=== PATIENT | male | born 1960 | race Caucasian/White ===

== ENCOUNTER 2024-03-08 08:34 | Outpatient (REF) | payer MEDICARE, MEDICAID, SELFPAY ==
--- NOTE | ~2024-03-08 | XR_ITS ---
EXAMINATION: XR HIP, LEFT Pelvis CLINICAL INFORMATION: Pain in the left hip COMPARISON: None available. TECHNIQUE: Two views of the left hip. Single AP view of the pelvis FINDINGS: The bones joints and soft tissues of the pelvis and left hip are normal. Incidental note made of spondylosis of the partially visualized lumbar sacral spine with degenerative disc changes present at least at the L3-L4 and L4-L5 level with disc space narrowing and endplate osteophytes. XR/XR hip LT min 2V IMPRESSION: 1. Normal pelvis and left hip. 2. 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 Electronically signed by: Tino Saucedo MD 03/14/2024 11:53 AM EDT
== END 2024-03-08 08:35 | disposition home or self-care (01) ==
LOC: HO.HOSX 08:34
PROVIDERS: Visit Provider Physician Assistant
DX: M25.552 Pain in left hip (principal); M16.12 Unilateral primary osteoarthritis, left hip
CPT/HCPCS: 73502; 99202

== ENCOUNTER 2024-03-08 10:36 | Outpatient (AMB) | payer MEDICARE, SELFPAY ==
--- NOTE | 2024-03-08 11:04 | MHC.OFFVIS ---
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 Patient reports his pain has been present for a while and is located in his groin area that travels towards the lateral aspect and at times to his lower back. He feels that his balance is off. He has had a previous MRI done in [place] on Jania Singh. Finds little to no relief with 650mg Arthritis Tylenol. He also takes gabapentin for his back however this does not provide him with any relief. 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 He states he has pain in his groin area that radiates up the back. His pain is aggravated with getting up from a seated position and walking. He finds minimal relief with Tylenol 650 and takes gabapentin for his back with no benefits. He ambulates with a limp. He has a history of back injections for his back pain. [facility] Surgical History (Updated 03/08/24 @ 11:10 by MERRITT Johnson) History of back surgery Social History (Updated 03/08/24 @ 11:11 by MERRITT Johnson) Patient Tobacco Use Status: Former Tobacco user Current occupational status: unemployed Review of Systems Const All systems reviewed & are unremarkable except as noted in HPI and below Physical Exam Const General: cooperative, healthy appearing, comfortable, no acute distress, well developed and alert Orientation/consciousness: patient oriented x3 HEENT Head: Yes normal to inspection, Yes normocephalic and Yes atraumatic Eyes General: appearance normal, both eyes and all related structures Resp Effort & Inspection: normal respiratory effort and able to speak in complete sentences Cardio Rate: regular rate Peripheral pulses: Peripheral pulses 2+ throughout GI Palpation (GI): Soft to palpation Skin Lesions: no lesions Rashes: no rashes Neuro General: patient oriented x3 Extrem Other: Left hip: Normal to inspection, ambulates with a slight limp. Has mild discomfort with internal and extension rotation of hip. No significant stiffness. Mild discomfort with hip flexion against resistance. NVI. Results Reviewed Results Reviewed: Xrays were obtained in the office today and personally reviewed by me of the left hip show mild oa Assessment & Plan Assessment & Plan (1) Osteoarthritis of left hip: Code(s): M16.12 - Unilateral primary osteoarthritis, left hip Category: Medical Plan We discussed options which include PT, NSAIDs and injections. The patient will defer on the injection today and proceed with PT and NSAIDs. If symptoms persist, she will contact me for an injection, otherwise, PRN. Orders: Orders PT Evaluation and Treatment Today M16.12 - Unilateral primary osteoarthritis, left hip XR hip LT min 2V Today M25.552 - Pain in left hip Patient Instructions: Scribed for Milton Juarez PA-C, by Christian Echavarria faculty i on call medical assistant, on 03/08/2024 at 11:00 AM EST.? I, Milton Juarez PA-C, have personally reviewed and agree with the information entered by the scribe. Coding Level of Care Code New Pt Level 3 (99814) Complex EM visit Add On G2211 Diagnoses Osteoarthritis of left hip M16.12
== END 2024-03-08 11:35 | disposition home or self-care (01) ==
PROVIDERS: PCP Family Medicine; Visit Provider Physician Assistant
DX: M16.12 Unilateral primary osteoarthritis, left hip (principal)
CPT/HCPCS: 99203; G2211

== ENCOUNTER 2024-05-09 08:00 | Outpatient (RCR) | payer MEDICARE, OTHER, SELFPAY ==
--- NOTE | 2024-03-23 12:47 | MHC.PT.EP ---
[facility] [place] [facility] [place] [facility] [place] Office [address] Parth Singh [address] [phone] F: [phone] F: [phone] F: [phone] F: [phone] Physical Therapy Plan of Care Date of Evaluation: 03/23/24 Date of Surgery: Diagnosis: OA of L hip. Assessment: Patient is a 64 year old R handed male who presents with s/s consistent with L hip OA, L hip pain. He does not work but likes to stay active at [facility] [employer] and in the community but has been less able to do so. Patient past medical history includes back surgery. Current impairments include pain, balance, ROM, flexibility, strength, activity tolerance and functional mobility. Functional limitations include decreased ability to walk, squat, transfer, negotiate stairs, and get out in the community. He does have a history of a fall. Patient is motivated with good rehab potential. Skilled PT will address impairments and functional limitations in order to achieve goals. Frequency and Duration: The patient will be seen 2x/week for 5 weeeks Short Term Goals: I with HEP -2 weeks L hip ER 35 - 3 weeks L hip flexion 110 - 3 weeks Mcfp Goals: Able to walk 20 minutes without increased pain - 5 weeks SLB > 5 seconds - 5 weeks LEFS 40/80 - 5 weeks Strength 4/5 grossly - 5 weeks Treatment Plan: Modalities to reduce pain, spasms and effusion. Manual therapy to restore motion and function. Therapeutic exercise to improve strength and flexibility. Neuromuscular re-education for posture and balance. Therapeutic activities to return to functional activities of daily living. Electronically signed by: Pedro Luis Templeton, PT Please sign and return to therapist. Thank you for your referral.
--- NOTE | 2024-07-11 13:51 | MHC.PT.DC ---
[facility] [place] [facility] [place] [facility] [place] [facility] [address] Parth Singh [address] [phone] F: [phone] F: [phone] F: [phone] F: [phone] Physical Therapy Discharge Report Diagnosis: OA of L hip. Date of Surgery: Date of Evaluation: 03/23/24 Date of Discharge: 05/13/24 Treatments to Date: 12 Cancellations to Date: No Shows to Date: Discharge Status: Improved Function Independent with HEP Discharge Summary: 05/09/24: pt is I with HEP. Hip ER is 38 on L, flexion to 112. He is able to walk 20 minutes without increased pain. His LEFS is 52/80 and his strength is 4/5 grossly. His SLB is 6 seconds b/l. He has met or exceeded all goals and is appropriate to d/c to HEP at this time. 05/01/24: pt progressing nicely. reviewed HEP as we plan to d/c to HEP NV. 04/25/24: pt with no new s/s. progressing ROM/flex/strength. we are tapering to d/c to HEP. 04/19/24: pt on good program and responding well. continue to progress as tolerated with current program. we will tape to 1x/week moving forward. 04/17/24: pt respondign well and we are considering tapering down as s/s have improved and he has become more I with program. we will discuss NV. 04/12/24: pt has been experiencing some soreness and stiffness around hip which has limited our ability to progress. we will attempt NV. 04/10/24: pt continues to respond well. no adverse reactions from above program. pt I with HEP. 04/05/24: added piriformis stretching with good response. continue to progerss as tolerated. update HEP NV. 04/02/24: pt progressing well still. on good program. no s/s to start or finish today. continue to progress strength. 03/28/24: pt progressing well. good gait mechanics. symmetrical. no adverse reactions from todays' progression. 03/26/24: pt progressing well with skilled PT. no adverse reactions continue to progress as tolerated..compliant with HEP. Patient is a 64 year old R handed male who presents with s/s consistent with L hip OA, L hip pain. He does not work but likes to stay active at home and in the community but has been less able to do so. Patient past medical history includes back surgery. Current impairments include pain, balance, ROM, flexibility, strength, activity tolerance and functional mobility. Functional limitations include decreased ability to walk, squat, transfer, negotiate stairs, and get out in the community. He does have a history of a fall. Patient is motivated with good rehab potential. Skilled PT will address impairments and functional limitations in order to achieve goals. Electronically signed by: Pedro Luis Templeton, PT Please sign and return to therapist. Thank you for your referral.
== END 2024-07-11 13:52 | disposition home or self-care (01) ==
LOC: HO.PTCHIC 08:00
PROVIDERS: PCP Family Medicine; Visit Provider Physician Assistant
DX: M16.12 Unilateral primary osteoarthritis, left hip (principal)
CPT/HCPCS: 97110; 97112; 97162

== ENCOUNTER 2025-02-08 08:20 | Outpatient (AMB) | payer MEDICARE, SELFPAY ==
--- NOTE | 2025-02-08 08:26 | MHC.OFFVIS ---
Vital Signs 02/08/25 08:33 Height 5 ft 6 in Weight 182 lb BMI 29.4 Intake Visit Reasons: OV - LT hip pain worsening Intake Note: Hong is a 65 year old man who presents today for a follow up visit for his osteoarthritis of the left hip. At his last visit on 03/08/24 patient did not want an injection however did agree to physical therapy. Today patient reports his pain has gotten worse. He reports frequent falls and stating his hip is not as strong. He would like to discuss if he is a surgical candidate for a hip replacement. Allergies aprindine Allergy (Verified 02/08/25 08:44) Swelling Penicillins Allergy (Verified 02/08/25 08:44) Unknown mycin Allergy (Uncoded 02/08/25 08:44) Unknown Medication List - Last Reconciled 02/08/25 by Milton Juarez PA-C atorvastatin 40 mg PO DAILY carbamazepine mg PO lisinopril 10 mg PO DAILY HPI HPI OV - LT hip pain worsening: Details: 65-year-old gentleman returns to the office today for a follow-up left hip pain. He states the pain is laterally and also into the groin region. He has difficulty with sleeping at night. He states he has tried physical therapy but he was only given 6 visits per his insurance and did not have any success with their treatment plan. [facility] Surgical History History of back surgery Social History Patient Tobacco Use Status: Former Tobacco user Current occupational status: unemployed Review of Systems Const All systems reviewed & are unremarkable except as noted in HPI and below Physical Exam Vital Signs: BMI result Body Mass Index 29.4 Const General: cooperative, healthy appearing, comfortable, no acute distress, well developed and alert Orientation/consciousness: patient oriented x3 HEENT Head: Yes normal to inspection, Yes normocephalic and Yes atraumatic Eyes General: appearance normal, both eyes and all related structures Resp Effort & Inspection: normal respiratory effort and able to speak in complete sentences Cardio Rate: regular rate Peripheral pulses: Peripheral pulses 2+ throughout GI Palpation (GI): Soft to palpation Skin Lesions: no lesions Rashes: no rashes Neuro General: patient oriented x3 Extrem Other: Left hip: Normal to inspection, ambulates with a slight limp. Has mild discomfort with internal and extension rotation of hip. No significant stiffness. Mild discomfort with hip flexion against resistance. Pain over the greater trochanter. NVI. Office Procedures AMB Joint Injection/Aspiration Joint Injection/Aspiration Details: left trochanteric bursa Prep: site was prepped using aseptic technique, ethochloride spray was applied and injection warnings given Injected: 40 mg of, with 3 mL of, 1% plain lidocaine, 0.25% bupivacaine and decadron Procedure: The patient tolerated the procedure well and there was some relief with the local anesthesia Coding 31345 - Glenohumeral/Tronchanteric Bursa/Intraarticular Procedure code (CPT) selection complete Assessment & Plan Assessment & Plan (1) Osteoarthritis of left hip: Code(s): M16.12 - Unilateral primary osteoarthritis, left hip Category: Medical (2) Trochanteric bursitis, left hip: Code(s): M70.62 - Trochanteric bursitis, left hip Category: Medical Plan We discussed options which includes a steroid injection over the bursa of his left hip. Patient tolerated the procedure well. He will work on home exercises for strengthening of the glute muscles. We will also order an MRI of the left hip to further evaluate the hip joint and soft tissues. Once the scan is complete I will contact the patient to discuss the next step in his treatment. I also had him make an appointment with Dr. He to evaluate his sciatica. Coding Level of Care Code Est Pt Level 3 (82767) Complex EM visit Add On G2211 Diagnoses Osteoarthritis of left hip M16.12 Trochanteric bursitis, left hip M70.62 CPT Codes Coding - Joint 7: 04211 - Glenohumeral/Tronchanteric Bursa/Intraarticular ([id number])
[2025-02-08 08:33] VITALS: BMI 29.4
--- OUTSIDE RECORDS SUMMARY | 2025-02-08 08:42 | XMS_ITS | Clinical Summary ---
Author Organization [facility] Address [address] [place] [address] Care Team Providers Care Oil Operator Name Role Phone Matias Pires MD Primary Care Provider [phone] Allergies Active Allergy Reactions Criticality Noted Date Comments Epinephrine Neutralizing Factor 10/28 Erythromycin 11/13/2020 Penicillins 11/13/2020 Lidocaine 11/13/2020 Medications Medication Sig Dispensed Refills Start Date End Date Status carBAMazepine (TEGretol) 200 MG tablet Take 200 mg by mouth 3 (three) times a day. 0 Active lisinopril (PRINIVIL,ZESTRIL) tablet 10 mg Take 10 mg by mouth daily. 0 Active atorvastatin (LIPITOR) tablet 10 mg Take 10 mg by mouth every evening. 0 Active oxyCODONE-acetaminophe n (PERCOCET) 5-325 MG per tablet TAKE 1 TO 2 TABLETS BY MOUTH EVERY 4 HOURS NEEDED FOR PAIN 0 01/02/2021 Active ibuprofen 600 MG tablet TAKE ONE TABLET THREE TIMES DAILY WITH FOOD NEEDED 0 05/11/2021 Active Active Problems Problem Noted Date Diagnosed Date Postop check 01/13/2021 Right shoulder injury, initial encounter 021 Impingement syndrome of right shoulder Family History Medical History Relation Name Comments Diabetes Mother Relation Name Status Comments Mother Social History Tobacco Use Types Packs/Day Years Used Date Smoking Tobacco: Never Assessed Sex and Gender Information Value Date Recorded Sex Assigned at Not on file Gender Identity Not on file Sexual Orientation Not on file Job Start Date Occupation Industry Not on file Not on file Not on file Last Filed Vital Signs Vital Sign Reading Time Taken Comments Blood Pressure - - Pulse - - Temperature - - Respiratory Rate - - Oxygen Saturation - - Inhaled Oxygen Concentration - - Weight 85.3 kg (188 lb) 11/25/2020 10:16 AM EDT Height 167.6 cm (5' 6 ) 11/25/2020 10:16 AM EDT Body Mass Index 30.34 11/25/2020 10:16 AM EDT Plan of Treatment Health Maintenance Due Date Last Done Comments Hepatitis C Screening 1961 COVID-19 Vaccine (#1) 1961 Depression Screening 1973 BMI Counseling 1979 Preventative Health Evaluation 1979 DTap / Tdap / Td (1 - Tdap) 01/15/1980 Colon Cancer Screening (Colonoscopy) 2006 Shingrix-Zoster Vaccine (1 of 2) 2011 Influenza Vaccine (#1) 2025 Pneumococcal Vaccine (1 of 1 - PCV) 2026 RSV Adult > 60+ Yrs or Pregn ant (1 - 1-dose 75+ series) 01/15/2036 Hepatitis B Vaccines Aged Out No long er eligible based on patient's age to complete this topic Pneumococcal Vaccine Aged Out No long er eligible based on patient's age to complete this topic RSV Ped < 20 months Aged Out No longe r eligible based on patient's age to complete this topic Care Teams Oil Operator Relationship Specialty Start Date End Date Matias Pires MD [address] [place] [address] PCP - General Family Medicine 07/16/16
--- OUTSIDE RECORDS SUMMARY | 2025-02-08 08:42 | XMS_ITS | Patient Health Record ---
Author Organization [facility] Address [address] [place] [address] Care Team Providers Care Clerical Secretary Name Role Phone josé Matias Primary Care Provider Unavailabl e Allergies Allergen (clinical drug ingredient) Drug/Non Drug Allergy documented on EMR Reaction Allergy Type Onset Date Status All Mycins (uncoded) Unknown Allergy Active heparin Heparin shortness of breath Drug Allergy Active Substance with penicillin structure and antibacterial mechanism of action (substance) Penicillins Unknown Drug Allergy Active Reason For Referral No Information Medications Medication SIG (Take, Route, Frequency, Duration) Notes Start Date End Date Status Lisinopril 10 MG 1 tablet Orally Once a day Active Atorvastatin Calcium 40 MG 1 tablet Oral ly Once a day Active TEGretol 200 MG [address] ee times a day Active Efinaconazole 10 % 1 application [employer] Hand ally Once a day to toenails; Duration: 336 days Active Plan Of Treatment No Information Insurance Providers Payer Name Payer Address Payer Phone Subscriber Number Group Number Insured Name Patient Relationship to Insured Coverage Start Date Coverage End Date [employer] of [place] [address] [place] [phone] [id number] Hong Arnold Self - patient is the insured Medical (General) History Medical History History ICD Code Pain in unspecified joint M25.50 Essential (primary) hypertension I10 Elevated blood-pressure reading, without diagnosis of hypertension R03.0 Hyperlipidemia, unspecified E78.5 Pain in unspecified knee M25.569 Proteinuria, unspecified R80.9 Synovial cyst of popliteal space [[place]rtiz] , unspecified knee M71.20 Epilepsy, unspecified, not intractable, with status epilepticus G40.901 Low back pain M54.5 Spinal stenosis, cervical region M48.02 Spinal stenosis, thoracic region M48.04 Spinal stenosis, lumbar region without n eurogenic claudication M48.061 Other cervical disc displacement, unspec ified cervical region 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
== END 2025-02-08 09:16 | disposition home or self-care (01) ==
LOC: HO.HOS 08:21
PROVIDERS: PCP Nurse Practitioner; Visit Provider Physician Assistant
DX: M16.12 Unilateral primary osteoarthritis, left hip (principal); M70.62 Trochanteric bursitis, left hip
CPT/HCPCS: 20610; 99213

== ENCOUNTER → 2025-02-08 08:20 | Outpatient (BNVA) | payer MEDICARE, SELFPAY | PROVIDERS: PCP Nurse Practitioner; Visit Provider Physician Assistant | DX: M25.552 Pain in left hip (principal); M16.12 Unilateral primary osteoarthritis, left hip; M70.62 Trochanteric bursitis, left hip | CPT/HCPCS: 20610; 99212; J0665; J1100; J2003 ==

== ENCOUNTER 2025-05-15 11:05 | Outpatient (AMB) | payer MEDICARE, SELFPAY ==
--- NOTE | 2025-05-15 11:24 | A.OFFVIS_ITS ---
Intake Visit Reasons: 1YR Allergies aprindine Allergy (Verified 05/15/25 11:24) Swelling Penicillins Allergy (Verified 05/15/25 11:24) Unknown mycin Allergy (Uncoded 05/15/25 11:24) Unknown Medication List - Last Reconciled 05/15/25 by Maura Burroughs CNP atorvastatin 40 mg PO DAILY carbamazepine 200 mg orally 2 tablets twice a day and 2.5 tablets at bedtime; lisinopril 10 mg PO DAILY HPI Comments Details: He was doing okay. He was taking carbamazepine, no medication side effects. No seizures. Balance was off at times. He was following with orthopedics for back and hip pain. Gets some joint pains with weather changes. Had surgery L1-2 discectomy 11/29/[address] Fong. On disability. Hearing aids are working well. 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 He has idiopathic partial seizures with secondary generalization that have been well controlled. Last seizure at work on 12/01/11. [facility] Medical History (Updated 05/15/25 @ 11:26 by Maura Burroughs CNP) Degenerative disc disease, cervical Sciatica Seizure disorder Surgical History History of back surgery Social History Patient Tobacco Use Status: Former Tobacco user Current occupational status: unemployed Review of Systems Const Denies chills, Denies daytime sleepiness, Denies difficulty sleeping, Denies fatigue, Denies fever(s), Denies frequent falls, Denies headache(s), Denies increased appetite, Denies poor appetite, Denies snoring, Denies weakness, Denies weight gain and Denies weight loss Eyes Denies loss of vision ENT Denies vertigo, Denies dizziness, Denies headache(s) and Denies neck pain Card Denies chest pain at rest, Denies chest pain with activity, Denies syncope, Denies leg edema, Denies palpitations, Denies dyspnea and Denies dyspnea on exertion Resp Denies cough, Denies dyspnea, Denies dyspnea on exertion and Denies snoring GI Denies abdominal pain, Denies constipation, Denies heartburn, Denies diarrhea and Denies nausea Denies urinary frequency, Denies urinary incontinence and Denies urinary urgency Musc Denies abnormal gait, Reports back pain, Denies myalgias, Reports arthralgias, Denies neck pain, Denies numbness and Denies tingling Neuro Denies abnormal gait, Denies vertigo, Denies dizziness, Denies syncope, Denies frequent falls, Denies headache(s), Denies lack of coordination, Denies loss of vision, Denies memory loss, Denies numbness, Denies Other visual disturbances, Denies restless legs, Denies seizure-like activity, Denies tingling, Denies paresthesias, Denies tremor(s) and Denies weakness Psych Denies anxiety, Denies depression, Denies auditory hallucinations, Denies memory loss and Denies visual hallucinations Endo Denies fatigue and Denies palpitations Physical Exam Const Other: General Appearance:? normal, in no acute distress. Heart:? S1, S2 normal, no murmurs. Lungs:? clear anteriorly and posteriorly. Musculoskeletal:? normal. Extremities:? no edema. Psych:? alert, oriented, cognitive function intact, cooperative with exam. Neuro Other: Abnormal Neurological Findings:?none.? Mental Status: alert and oriented X 3. Normal attention, orientation, memory, and affect. Cranial Nerves: Pupils are equal, round, and reactive to light. External ocular muscles are intact. Visual reynoso are full, no ptosis. Face is symmetrical, no facial weakness or droop. Facial sensations are normal. Tongue protrudes in midline. Palate elevates symmetrically. Shoulder shrugging is normal Motor Examination: Normal muscle tone, bulk and strength. No atrophy or fas ciculations. No drift of the extended upper extremities. DTR 2+. Plantars are flexor. Sensory Exam: Normal light touch, temperature, pinprick, vibration, and joint- position sensations. Rhomberg sign is absent. Coordination: No ataxia. No titubation. Gait Exam: Within normal limits. Cerebellar Signs: [id number] is okay. Extrapyramidal System: No tremor, rigidity with normal facial expressions. No bradykinesia. No bradyphrenia. Normal arm swing and posture. No propulsion or retropulsion. Speech: Normal. Assessment & Plan Assessment & Plan (1) Seizure disorder: Code(s): G40.909 - Epilepsy, unspecified, not intractable, without status epilepticus Category: Medical Plan: Continue carbamazepine 200mg 2 tablets twice a day and 2.5 tablets at bedtime (total of 6.5 tablets/day). Follow up in 1 year or sooner as needed. Medications: Changed From carbamazepine 200 mg orally 2 tablets twice a day and 2.5 tablets at bedtime; To carbamazepine 200 mg orally 2 tablets twice a day and 2.5 tablets at bedtime; 585 tabs 3RF 90 days Coding Level of Care Code Est Pt Level 4 (97399) Diagnoses Seizure disorder G40.909
== END 2025-05-15 11:38 | disposition home or self-care (01) ==
LOC: HO.HSM 11:06
PROVIDERS: PCP Nurse Practitioner; Referring Provider Family Medicine; Visit Provider Registered Nurse
DX: G40.909 Epilepsy, unspecified, not intractable, without status epilepticus (principal)
CPT/HCPCS: 99214

== ENCOUNTER → 2025-05-15 11:05 | Outpatient (BNVA) | payer MEDICARE, SELFPAY | PROVIDERS: PCP Nurse Practitioner; Referring Provider Family Medicine; Visit Provider Registered Nurse | DX: G40.909 Epilepsy, unspecified, not intractable, without status epilepticus (principal); Z79.899 Other long term (current) drug therapy | CPT/HCPCS: 99212 ==